=== PATIENT | male | born 1985 | race Two or more races ===

== ENCOUNTER 2022-11-18 18:56 | Emergency (ER) | payer SELFPAY ==
[~2022-11-18] VITALS: Ht 167.6 cm; Wt 78.0 kg
[2022-11-18] MEDS ORDERED: SODIUM CHLORIDE 0.9% 1,000 ML IV ONE (19:30)
[2022-11-18 21:14] LABS: HEMATOCRIT. 50.6 % (42.0-52.0); HEMOGLOBIN. 17.5 g/dL (14.0-18.0); MEAN CORPUSCULAR HEMOGLOBIN 31.8 pg (28.0-32.0); MEAN CORPUSCULAR VOLUME 92.1 fL (80.0-94.0); MEAN PLATELET VOLUME 9.2 fl (7.4-10.4); PLATELET 195 x1000/uL (130-400); RED CELL DISTRIBUTION WIDTH 12.6 % (11.6-14.6)
[2022-11-18 21:20] LABS: CHLORIDE 104 mEq/L (98-107)
[2022-11-18 21:28] LABS: ETHANOL BLOOD < 10 mg/dL
[2022-11-18 21:37] LABS: PLATELET ESTIMATE NORMAL
[2022-11-18] MEDS ORDERED: NALO4SPR BOTHNSTRLS (23:13)
[2022-11-18 23:18] VITALS: BP 125/87
== END 2022-11-19 00:38 | disposition home or self-care (01) ==
LOC: ER 18:56 → EDBD 18:56 → ER 11-19 00:38
DX: T40.2X1A Poisoning by other opioids, accidental (unintentional), initial encounter (principal); F11.129 Opioid abuse with intoxication, unspecified; H57.03 Miosis; R41.82 Altered mental status, unspecified; R15.1 Fecal smearing; R73.9 Hyperglycemia, unspecified; D72.829 Elevated white blood cell count, unspecified; Y92.038 Other place in apartment as the place of occurrence of the external cause; I45.10 Unspecified right bundle-branch block
CPT/HCPCS: 36415; 80053; 80307; 80320; 80329; 85025; 93005; 96360; 99291; J7030; Z7610; G0480